=== PATIENT | female | born 2000 | race Caucasian/White ===

== ENCOUNTER 2025-02-19 20:15 | Emergency (ER) | payer OTHER, SELFPAY ==
[2025-02-19 20:21] VITALS: BP 179/127
[2025-02-19 21:40] VITALS: BP 116/112; BMI 39.7
--- NOTE | 2025-02-19 21:51 | ED.GENMED ---
History of Present Illness
General
Chief Complaint: Ear Problem
Source: patient
Exam Limitations: none
Time Seen by Provider: 02/19/25 21:49
Nursing documentation reviewed up to this point in time: agreed with
History of Present Illness
History of Present Illness:
HPI:
This is a 24-year-old female with a past medical history of asthma he presents to the emergency department today with concerns of right ear pain and swelling. Patient reports that when this first started, she originally went to urgent care it was
diagnosed with an outer ear infection. She was given eardrops. She was given ciprofloxacin drops. Patient is present in the ER with her mom. Her mom doesn't know that as a child she was pruning the swimmers ear. Patient reports that over the past
two days, the pain has increased and now she has pain around her jaw and swelling on her face and increasing pain around the ear. Patient reports that it is extra extraordinarily sensitive to touch. Patient any fevers or chills. She denies any
headaches, lateness, dizziness, visual changes, chest pain, shortness of breath. She reports minimal drainage from a year. Her ear. She's currently does not follow up with the ENT doctor. did es any vomiting, abdominal pain. She's up-to-date on her
vaccinations. She has any recent travel. Your facial pain goes down to her drawer. She reports trouble swollen at times as well. She knows anything getting stuck in her throat.
EXAM:
General: Patient is well appearing and in no acute distress; non-toxic
Skin: Warm and dry, no rashes or lesions
Head: Swelling noted to right preauricular region, mild right sided mastoid tenderness with no mastoid swelling.
Eyes: Sclera non-icteric. EOMs intact.
Neck: No palpable lymphadenopathy, no asymmetric swelling of right anterior neck
Ears: Swelling and erythema noted to right external auditory canal with minimal debris, left EOC unremarkable TM normal without erythema or bulging
Mouth: No intra-oral lesions, uvula midline, mild pharyngeal erythema. No trismus, no drooling
Cardiac: Regular rate and rhythm, no murmurs
Pulm: Normal respiratory effort, no wheezes, rales, or rhonchi
Neuro: CN II-XII intact, no focal neurologic deficits.
Psychiatric: Appropriate mood and affect.
ED COURSE:
Patient's pain significantly improved with Toradol and Percocet and was able to sleep comfortably
Patient has ibuprofen, tylenol and oxycodone from a previous provider which she will use at home for pain
NUMBER AND COMPLEXITY OF PROBLEMS ADDRESSED AT THE ENCOUNTER
� Chronic conditions affecting care: asthma
� Acute Exacerbation and/or Progression of Chronic Illness: n/a
� Differential Diagnosis includes: ddx include otitis media, otitis externa, acute mastoiditis, malignant otitis externa, abscess, cellulitis, submandibular lymphadenopathy, epiglottitis, acute pharyngitis
AMOUNT AND/OR COMPLEXITY OF DATA TO BE REVIEWED AND ANALYZED
� I performed an independent evaluation of and my interpretation is:
EKG: No indication for ECG no chest pain
CT: Mastoid air cells unremarkable, no signs of mastoiditis
X-rays: No indication for x-ray imaging at this time
Laboratory Studies: Leukocytosis noted, likely secondary to current infection; patient does not meet SIRS criteria; no fever present; Stable anemia noted; mild hyponatremia at baseline
� Review of other/old records:
Reviewed ER physician documentation from 04/09/2020 patient seen for menorrhagia
No hospital discharge summaries for review
� Clinical information was obtained by an independent historian: Mother present with patient who also provided history
� Prescriptions/Medications Considered but not given: N/A
� Further testing considered but not performed: N/a
RISK OF COMPLICATIONS AND/OR MORBIDITY OR MORTALITY OF PATIENT MANAGEMENT
� Social determinants of health affecting care: N/A
� Discussion with other providers: Discussed case with ED attending
� Escalation of care including admission/observation vs risk of discharge considered:
Patient stable for discharge. Admit not indicated. Patient will need close follow up with ENT provider.
24-year-old female present emergency apartment with concerns of right ear pain. A few days later, she started develop swelling in her pre- curricular region and around the jaw. Physical exam she's well appearing in no acute distress. She does have
swelling noted to the right side of her face and tenderness. No overlying erythema. When examining her right ear, there is swelling noted to the right external auditory Canal with some mild debris noted . There are no intraoral lesions noted, there
is parotid swelling noted. Of note, patient has been taking Augmentin for the past five days because she has a dental procedure to get a root canal tomorrow February 21. She scheduled get this procedure done on the left lower side and the pain is
on the right.
She went for CAT scan which was negative for any submandibular abscess or deep space infection of the neck, but did show parotitis and otitis externa but no evidence of mastoiditis no evidence of drainable fluid collection. Patient expressed
concern because she feels like her ear canal is so swollen and at the antibiotic drops are not getting through. I did place ear wick and instructed patient how to use eardrops for the next few days and discussed points of ENT follow up. I switch
patient to clindamycin for better coverage of potential suppurative parotitis. Discuss warm compresses. Discussed monitoring for worsening symptoms. Strict return precautions.
Past History
Past History
ED Past Medical History: None
ED Past Surgical History: Gynecological (Elective D&E)
Social History
Tobacco: Non-smoker
Alcohol: None
Drug: None
Review of Systems
Review of Systems
All Other Systems: ROS reviewed and negative except as documented in HPI and ROS
Phy Exam
Physical Exam
Physical Exam:
see hpi
Course
Orders/Labs/Results
Orders:
Orders
02/19/25 22:00
CT Neck With Iv Contrast Urgent
Comment:
Reason For Exam: neck and jaw pain
02/19/25 22:08
0.9% Sodium Chloride 1000 ml [Nss] 1,000 ml IV BOLUS
Ketorolac [Toradol] 15 mg IV NOW STA
02/19/25 22:30
Add On- LAB Urgent
Tests Added?: beta hcg
02/19/25 23:11
Complete Blood Count/With Diff Urgent
Comprehensive Metabolic Panel Urgent
HCG, Serum Qualitative Screen Urgent
Comment: ADD ON
02/20/25 02:12
Oxycodone/Acetaminophen [Percocet 5/325] 1 tablet PO NOW STA
Abnormal Lab Results
02/19/25
23:11
WBC 17.5 H 10^3/uL
(4.8-10.8)
Hgb 11.8 L g/dL
(12.0-16.0)
Hct 36.4 L %
(37.0-47.0)
MCV 75.1 L fL
(81.0-99.0)
MCH 24.3 L pg
(27.0-31.0)
MCHC 32.4 L g/dL
(33.0-37.0)
RDW 15.2 H %
(11.5-14.5)
Abs Immat Gran (auto) 0.1 H 10^3/uL
(0-0.05)
Absolute Neuts (auto) 14.5 H 10^3/uL
(1.4-6.5)
Absolute Monos (auto) 0.9 H 10^3/uL
(0.1-0.6)
Neutrophils % 83.1 H %
(42.2-75.2)
Lymphocytes % 10.7 L %
(20.5-51.1)
Sodium 133 L mmol/L
(135-145)
Glucose 101 H mg/dl
(70-99)
02/19/25 23:11
02/19/25 23:11
Vital Signs
Initial and Last Documented VS:
Initial Vital Signs
Temp Pulse Resp BP Pulse Ox
98.9 F 62 18 179/127 94
02/19/25 20:21 02/19/25 20:21 02/19/25 20:21 02/19/25 20:21 02/19/25 20:21
Last Documented Vital Signs
Temp Pulse Resp BP Pulse Ox
98.9 F 100 18 151/104 99
02/19/25 20:21 02/20/25 02:22 02/20/25 02:22 02/20/25 02:22 02/20/25 02:22
*Pulse Oximetry
SaO2: 94
Patient hypoxic: no
*Critical Care Note
Total Time (30-74mins, 75-104mins- exclusive of procedures): Not Applicable
ED Attending Note
-
Portions of this chart may have been created with voice recognition software.� Occasional wrong word or��sound alike� substitutions may have occurred due to the inherent limitations of voice recognition software.
Discharge Plan
Departure
Patient Disposition: Home (Routine Discharge)
Date of Disposition: 02/20/25
Time of Disposition: 02:23
Patient with high blood pressure during this ER visit?: Yes
Condition: Good
Discharge Problem:
Acute parotitis, Acute otitis externa
Instructions: Parotitis, Outer Ear Infection (DC), BLOOD PRESSURE
Prescriptions:
New
clindamycin HCl [Cleocin HCl] 300 mg capsule
300 mg PO TID 7 Days Qty: 21 0RF
No Action
amoxicillin-pot clavulanate 1 TABLET tablet
1 tab PO Q12 Qty: 14 0RF
Referrals:
[facility], [Other]
NONE,* [Family Provider, Internal Medicine]
Christiano Munroe MD [Active, Otology] - Call in 1-3 days for appt
Stand Alone Forms: Return to Work
Activity Restrictions/Additional Instructions:
You can alternate Tylenol and Motrin for your pain. You can apply a warm compress over the right side of the face to help with swelling.
Please continue the eardrops. Please instill 3 drops twice daily for 7 days. It is important to follow-up with ENT. Please contact them or schedule appointment for follow-up to ensure your swelling is improving and your infection is clearing.
Please call your dentist to make sure that they are okay with proceeding with your procedure tomorrow given recurrent infections. Please let them know that you started taking clindamycin that you stop Augmentin.
PLEASE RETURN TO THE ER SHOULD YOU DEVELOP INCREASING PAIN, HEARING LOSS, BLURRY VISION, PERSISTENT HEADACHE, CONFUSION, ALTERED MENTAL STATUS, NAUSEA AND VOMITING, BLURRED VISION, FEVERS OR CHILLS, CHEST PAIN, SHORTNESS BREATH, OR ANY OTHER SIGNS
OR SYMPTOMS WORRISOME TO YOU.
Interventions
Interventions:
*Risk Screen - Suicide Last Done: 02/19/25 20:23
*General Assessment Last Done: 02/19/25 20:23
*Neglect/Abuse Screening Last Done: 02/19/25 20:23
*ED- Fall Risk Assessment Last Done: 02/19/25 21:16
*ED COVID-19 Vaccine History Last Done: 02/19/25 21:16
*Nursing Disposition Last Done: 02/20/25 02:48
Discharge Date and Time
Discharge Date/Time: 02/20/25 02:49
Print Language: WELSH
[2025-02-19] MEDS: TORADOL 15 MG IV (23:08)
[2025-02-19] MEDS: NSS 1000 IV (23:09)
[2025-02-19 23:21] LABS: Hematocrit 36.4 % (37.0-47.0); Hemoglobin 11.8 g/dL (12.0-16.0); Mean Corp Hgb Conc. 32.4 g/dL (33.0-37.0); Mean Corpuscular Volume 75.1 fL (81.0-99.0); Nucleated Red Blood Cells % 0 %; Platelet Count 325 10^3/uL (130-400); Red Cell Dist. Width 15.2 % (11.5-14.5)
[2025-02-19 23:43] LABS: HCG, Serum Qualitative Screen Negative
[2025-02-19 23:49] LABS: ALT (SGPT) 20 U/L (0-35); AST (SGOT) 19 U/L (14-36); Albumin 4.2 g/dl (3.5-5.0); Alkaline Phosphatase 120 U/L (38-126); Blood Urea Nitrogen 8 mg/dl (7-17); Calcium 9.3 mg/dl (8.4-10.2); Carbon Dioxide 25 mmol/L (22-30); Chloride 102 mmol/L (98-107); Estimated Creatinine Clearance > 125 ml/min; Glucose 101 mg/dl (70-99); Potassium 4.1 mmol/L (3.5-5.1); Sodium 133 mmol/L (135-145); Total Protein 7.3 g/dl (6.3-8.2); eGFR > 60.00
[2025-02-20] MEDS: PERCOCET 5/325 1 TABLET PO (02:20)
[2025-02-20 02:22] VITALS: BP 151/104
== END 2025-02-20 02:49 | disposition home or self-care (01) ==
LOC: EMR 20:15
PROVIDERS: Physician Assistant; EMERGENCY PHYSICIAN Emergency Medicine
DX: K11.21 Acute sialoadenitis (principal); H60.501 Unspecified acute noninfective otitis externa, right ear; J45.909 Unspecified asthma, uncomplicated
CPT/HCPCS: 99284; 96374; 96361; 70491; 80053; 84703; 85025; Q9967

== ENCOUNTER 2025-02-20 21:57 | Emergency (ER) | payer OTHER, SELFPAY ==
[2025-02-20 22:05] VITALS: BP 188/132
[2025-02-21] MEDS: MAALOX 50 PO (00:10)
[2025-02-21] MEDS: NSS 1000 IV (00:14)
[2025-02-21] MEDS: TORADOL 15 MG IV (00:26)
[2025-02-21] MEDS: DECADRON 10 MG IV (00:26)
[2025-02-21 00:30] VITALS: BP 167/110
[2025-02-21 01:00] VITALS: BP 173/107
--- NOTE | 2025-02-21 01:00 | ED.GENMED ---
History of Present Illness
General
Chief Complaint: Esophageal Problem
Source: patient
Exam Limitations: none
Time Seen by Provider: 02/20/25 23:48
Nursing documentation reviewed up to this point in time: agreed with
History of Present Illness
History of Present Illness:
24-year-old female here for increasing pain right ear, jaw and burning pain in throat and upper chest after taking her second Clindamycin pill, sleeping for 4 hours then waking with burning in her throat and chest 'like it is stuck.' Was seen here
yesterday for right ear pain and diagnosed with acute parotitis and acute otitis externa right side. She was placed on clindamycin 300 mg p.o. 3 times daily x 7 days and Cipro 0.3% and/Dexamethasone 0.1% ear drops with ear wick right ear.
Past History
Past History
ED Past Medical History: Asthma
ED Past Surgical History: Gynecological (Elective D&E)
Social History
Tobacco: Non-smoker
Alcohol: None
Drug: None
Personal: Single
Living: with family
Review of Systems
Review of Systems
Allergies reviewed?: Yes
All Other Systems: ROS reviewed and negative except as documented in HPI and ROS
Phy Exam
Physical Exam
Physical Exam:
GENERAL: Moderate tearful distress, . A&Ox3.
CONSTITUTIONAL: Afebrile.
EYES: clear, conjunctivae normal
ENMT: moist mucus membranes, Pharynx nl, no mastoid tenderness, patient able to open her mouth about 60% due to pain in right ear and jaw. Speaking and swallowing well.
Neck: Supple, no palpable lymphadenopathy
RESPIRATORY: Regular respirations, nonlabored, lungs clear.
CARDIOVASCULAR: Regular rate and rhythm, no murmurs, no rubs.
GI: Soft, nontender, normal BS
MUSCULOSKELETAL: Moves with ease. Well perfused.
SKIN: Warm, dry, pink
PSYCH: Tearful she actually just mood and affect. Well kept, interactive and appropriate
NEUROLOGIC: Awake, alert and oriented. No focal neurological deficits
Course
Orders/Labs/Results
Orders:
Orders
02/20/25 23:55
Complete Blood Count/With Diff Urgent
Comprehensive Metabolic Panel Urgent
0.9% Sodium Chloride 1000 ml [Nss] 1,000 ml IV BOLUS
Dexamethasone Sod Phosphate [Decadron] 10 mg IV NOW STA
Ketorolac [Toradol] 15 mg IV NOW STA
Mag Hydrox/Al Hydrox/Simeth [Maalox] 30 ml Phenobarb/Hyoscy/Atropine/Scop [] 10 ml Viscous Lidocaine 2% [Xylocaine Viscous Cup] 10 ml PO NOW
02/20/25 23:59
Mag Hydrox/Al Hydrox/Simeth [Maalox] 30 ml .ROUTE .STK-MED ONE
Phenobarb/Hyoscy/Atropine/Scop [] 10 ml .ROUTE .STK-MED ONE
02/21/25 00:00
Viscous Lidocaine 2% [Xylocaine Viscous Cup] 15 ml .ROUTE .STK-MED ONE
02/21/25 01:12
Clindamycin 600 mg/50 ml [Cleocin] 600 mg in 50 ml IV NOW
02/21/25 01:26
Oxycodone/Acetaminophen [Percocet 5/325] 1 tablet PO NOW STA
02/21/25 01:29
Pantoprazole [Protonix IV] 80 mg IV NOW STA
02/21/25 01:31
Clindamycin 600 mg/50 ml [Cleocin] 600 mg in 50 ml IV NOW
Abnormal Lab Results
02/21/25
00:27
WBC 17.4 H 10^3/uL
(4.8-10.8)
MCV 75.3 L fL
(81.0-99.0)
MCH 23.7 L pg
(27.0-31.0)
MCHC 31.5 L g/dL
(33.0-37.0)
RDW 15.4 H %
(11.5-14.5)
Abs Immat Gran (auto) 0.1 H 10^3/uL
(0-0.05)
Absolute Neuts (auto) 14.0 H 10^3/uL
(1.4-6.5)
Absolute Monos (auto) 1.1 H 10^3/uL
(0.1-0.6)
Neutrophils % 80.8 H %
(42.2-75.2)
Lymphocytes % 11.9 L %
(20.5-51.1)
Creatinine 0.5 L mg/dL
(0.6-1.0)
Glucose 125 H mg/dl
(70-99)
02/21/25 00:27
02/21/25 00:27
Vital Signs
Initial and Last Documented VS:
Initial Vital Signs
Temp Pulse Resp BP Pulse Ox
98.9 F 121 20 188/132 100
02/20/25 22:05 02/20/25 22:05 02/20/25 22:05 02/20/25 22:05 02/20/25 22:05
Last Documented Vital Signs
Temp Pulse Resp BP Pulse Ox
98.9 F 110 18 130/84 100
02/20/25 22:05 02/21/25 00:33 02/21/25 00:33 02/21/25 02:23 02/21/25 02:24
MDM/Problems Addressed
Differential Diagnosis Includes:
Mastoiditis, otitis externa, esophagitis from pill clindamycin
MDM/Problems Addressed:
24-year-old female here for increasing pain right ear, jaw and burning pain in throat and upper chest after taking her second Clindamycin pill, sleeping for 4 hours then waking with burning in her throat and chest 'like it is stuck.' Was seen here
yesterday for right ear pain and diagnosed with acute parotitis and acute otitis externa right side. She was placed on clindamycin 300 mg p.o. 3 times daily x 7 days and Cipro 0.3% and/Dexamethasone 0.1% ear drops with ear wick right ear.
Afebrile. Denies n/v. Speaking and swallowing well.
Patient is requesting the ear wick be taken out of her right ear as it is really bothering her
Labs pending.
CBC: WBC unchanged: 17.4
CMP: No clinically significant abnormality
02/21 1:15 AM:
Patient feeling better, burning in her chest area has subsided after GI cocktail
She is much calmer and appears as if she is feeling better
New ear wick replaced in the right ear and eardrops applied
Her pain is improved with IV Toradol
Plan: IV dose of clindamycin here tonight
Dose of Protonix here tonight then prescription for 7 days worth of Protonix sent to her pharmacy
Her insurance company will not allow her to see the ENT doctor as she does not have a primary care doctor yet. Her first appointment with a primary care doctor is not until March. Therefore she was instructed to return here if symptoms
worsen.
She is out of bed and ambulating well, smiling, feeling and looking much better
Stable for discharge
*Pulse Oximetry
SaO2: 100
Oxygen Mode of Delivery: Room air
Patient hypoxic: no
*Critical Care Note
Total Time (30-74mins, 75-104mins- exclusive of procedures): Not Applicable
ED Attending Note
-
Portions of this chart may have been created with voice recognition software.� Occasional wrong word or��sound alike� substitutions may have occurred due to the inherent limitations of voice recognition software.
Discharge Plan
Departure
Patient Disposition: Home (Routine Discharge)
Date of Disposition: 02/21/25
Time of Disposition: 01:27
Patient with high blood pressure during this ER visit?: No
Condition: Good
Discharge Problem:
Acute otitis externa of right ear, Esophagitis due to drug
Instructions: Esophagitis, Outer ear infection - ED (DC)
Prescriptions:
New
pantoprazole [Protonix] [address] for susp in packet
40 mg PO DAILY Qty: 7 0RF
No Action
amoxicillin-pot clavulanate 1 TABLET tablet
1 tab PO Q12 Qty: 14 0RF
clindamycin HCl [Cleocin HCl] 300 mg capsule
300 mg PO TID 7 Days Qty: 21 0RF
Referrals:
Your, dentist [Other] - Keep scheduled appt
NONE,* [Family Provider, Internal Medicine]
Activity Restrictions/Additional Instructions:
As we discussed, I sent a prescription to your pharmacy for Protonix to take for the next 7 days to protect your stomach
When you take the clindamycin, drink plenty of fluid with it and sit upright for at least 15 minutes afterwards
Ibuprofen 600 mg, with food, every 6 hours as needed for pain
You were given a dose of Decadron, a steroid intravenously here today
You were also given a dose of Toradol intravenously for pain
You may return here anytime if your symptoms worsen or anything worries you
Interventions
Interventions:
*Risk Screen - Suicide Last Done: 02/20/25 21:58
*General Assessment Last Done: 02/21/25 00:02
*Neglect/Abuse Screening Last Done: 02/20/25 22:12
*ED- Fall Risk Assessment Last Done: 02/21/25 00:02
*ED COVID-19 Vaccine History Last Done: 02/21/25 00:02
*Nursing Disposition Last Done: 02/21/25 02:26
ED-EENT Assessment Last Done: 02/21/25 00:02
JT-Abmnam-Uidjpjheae Assessment Last Done: 02/21/25 00:02
Discharge Date and Time
Discharge Date/Time: 02/21/25 02:27
Print Language: [id number]
[2025-02-21 01:03] LABS: Hematocrit 38.7 % (37.0-47.0); Hemoglobin 12.2 g/dL (12.0-16.0); Mean Corp Hgb Conc. 31.5 g/dL (33.0-37.0); Mean Corpuscular Volume 75.3 fL (81.0-99.0); Nucleated Red Blood Cells % 0 %; Platelet Count 334 10^3/uL (130-400); Red Cell Dist. Width 15.4 % (11.5-14.5)
[2025-02-21 01:18] LABS: ALT (SGPT) 19 U/L (0-35); AST (SGOT) 20 U/L (14-36); Albumin 4.1 g/dl (3.5-5.0); Alkaline Phosphatase 117 U/L (38-126); Blood Urea Nitrogen 8 mg/dl (7-17); Calcium 9.1 mg/dl (8.4-10.2); Carbon Dioxide 27 mmol/L (22-30); Chloride 102 mmol/L (98-107); Glucose 125 mg/dl (70-99); Potassium 4.3 mmol/L (3.5-5.1); Sodium 136 mmol/L (135-145); Total Protein 7.0 g/dl (6.3-8.2); eGFR > 60.00
[2025-02-21] MEDS: PERCOCET 5/325 1 TABLET PO (01:32)
[2025-02-21] MEDS: PROTONIX IV 80 MG IV (01:32)
[2025-02-21 01:33] VITALS: BP 143/95
[2025-02-21] MEDS: CLEOCIN 50 IV (01:45)
[2025-02-21 02:00] VITALS: BP 158/106
[2025-02-21 02:23] VITALS: BP 130/84
== END 2025-02-21 02:27 | disposition home or self-care (01) ==
LOC: EMR 21:57
PROVIDERS: Registered Nurse; EMERGENCY PHYSICIAN Student in an Organized Health Care Education/Training Program
DX: H60.501 Unspecified acute noninfective otitis externa, right ear (principal); K20.90 Esophagitis, unspecified without bleeding; J45.909 Unspecified asthma, uncomplicated
CPT/HCPCS: 99283; 96365; 96375; 96361; 80053; 85025